=== PATIENT | female | born 1950 | race Caucasian/White ===

== ENCOUNTER 2022-06-14 15:39 | Emergency (ER) | payer OTHER ==
[~2022-06-14] VITALS: Ht 157.5 cm; Wt 62.7 kg
[2022-06-14] MEDS ORDERED: ASPI81CH33 PO (16:40)
[2022-06-14] MEDS ORDERED: NORV5TAB PO (16:40)
[2022-06-14] MEDS ORDERED: ALLO100T PO (16:40)
[2022-06-14] MEDS ORDERED: LOPR1TAB7 PO (16:40)
[2022-06-14] MEDS ORDERED: ATOR80TA59 PO (16:40)
[2022-06-14] MEDS ORDERED: NEUR100C PO (16:40)
[2022-06-14] MEDS ORDERED: OMEP10CASR PO (16:40)
[2022-06-14] MEDS ORDERED: SYNT88TA2 PO (16:42)
[2022-06-14 20:52] VITALS: BP 160/80
== END 2022-06-14 21:09 | disposition home or self-care (01) ==
LOC: M ED 15:39
DX: S80.01XA Contusion of right knee, initial encounter (principal); S80.12XA Contusion of left lower leg, initial encounter; S93.601A Unspecified sprain of right foot, initial encounter; W01.0XXA Fall on same level from slipping, tripping and stumbling without subsequent striking against object, initial encounter; Y92.513 Shop (commercial) as the place of occurrence of the external cause; M25.461 Effusion, right knee; I10 Essential (primary) hypertension; E03.9 Hypothyroidism, unspecified; E78.5 Hyperlipidemia, unspecified; K21.9 Gastro-esophageal reflux disease without esophagitis; M10.9 Gout, unspecified; Z79.899 Other long term (current) drug therapy; Z79.890 Hormone replacement therapy; Z79.82 Long term (current) use of aspirin; Z88.1 Allergy status to other antibiotic agents; Z88.2 Allergy status to sulfonamides